=== PATIENT | male | born 1970 | race Caucasian/White ===

== ENCOUNTER → 2017-12-03 | Outpatient (CLI) | payer SELFPAY ==
--- NOTE | 2017-12-03 11:00 | CT ---
HISTORY: Left-sided chest pain, hypertension, sleep apnea Cardiac calcium scoring. Technique: Multiple axial images of the chest were obtained on a [address] from the aortic arch to the base of the heart with noncontrast prospective gating. AEC was utilized. Findings: A total calcium score of 29 is observed. The patient is between the 50 and 75th percentile for age a nd sex with definite least mild atherosclerotic plaque present and mild narrowings likely. There is a possible non cm hyperdense mass in the left hepatic lobe versus focal fatty sparing for wh ich further imaging evaluation is recommended. MRI without and with contrast would be ideal. However, CT hemangioma protocol would be an option as well if the patient is unable to undergo MRI. IMPRESSION: Mild atherosclerotic plaque identified as above. Incidental left hepatic lobe lesion for which furthe r imaging evaluation is recommended. Reported By:
== END ==
LOC: RAD 07:51
PROVIDERS: ATTEND Nurse Practitioner Family
DX: Z13.6 Encounter for screening for cardiovascular disorders (principal)